=== PATIENT | female | born 1955 | race Caucasian/White ===

== ENCOUNTER 2017-02-06 16:59 | Emergency (ER) | payer OTHER ==
[~2017-02-06] VITALS: Ht 160 cm; Wt 94.3 kg
--- NOTE | 2017-02-06 17:12 | NUR ---
PT TO ER BED 09. PRESENTS W/ L SIDE FACIAL SWELLING AND TOOTH ACHE X 5 DAYS. PLACED ON MONITOR. STABLE VITALS. AWAITING MD [place].
--- NOTE | 2017-02-06 17:29 | NUR ---
IDANIA GONZALES AT BEDSIDE FOR EVAL.
[2017-02-06] MEDS ORDERED: ONDANSETRON HCL/PF 4 MG/2 ML VIAL IVP ONE (17:30)
[2017-02-06] MEDS ORDERED: IV NS 0.9% 1,000 ML BAG IV ONE (17:30)
[2017-02-06] MEDS ORDERED: HYDROMORPHONE INJ 2 MG/ML DISP.SYRIN IV ONE (17:30)
[2017-02-06] MEDS ORDERED: KETOROLAC TROMETHAMINE INJ 30 MG/ML VIAL IV ONE (17:30)
[2017-02-06] MEDS ORDERED: ACETAMINOPHEN ES 500 MG TABLET PO ONE (17:30)
--- NOTE | 2017-02-06 17:40 | NUR ---
IV LINE STARTED. BLOOD DRAWN AND SENT TO LAB.
[2017-02-06] MEDS ORDERED: ONDANSETRON HCL/PF 4 MG/2 ML VIAL ONE (17:43)
[2017-02-06] MEDS ORDERED: KETOROLAC TROMETHAMINE 15 MG/ML VIAL ONE (17:43)
[2017-02-06] MEDS ORDERED: ACETAMINOPHEN ES 500 MG TABLET ONE (17:43)
[2017-02-06] MEDS ORDERED: HYDROMORPHONE 1 MG/1 ML DISP.SYRIN ONE (17:43)
[2017-02-06] MEDS ORDERED: IV SET PRIMARY 1 EA INFUS.SET MC ONE (17:43)
[2017-02-06] MEDS ORDERED: IV NS 0.9% 1,000 ML ONE (17:43)
[2017-02-06 17:47] LABS: BASOPHILS # (AUTO) 0.2 /CMM (0.0-0.2); BASOPHILS % (AUTO) 1.4 % (0.0-2.0); EOSINOPHILS # (AUTO) 0.3 /CMM (0.0-0.7); EOSINOPHILS % (AUTO) 1.9 % (0.0-6.0); HEMATOCRIT 43 % (33-45); HEMOGLOBIN 14.4 g/dL (11.5-14.8); LYMPHOCYTES # (AUTO) 1.5 /CMM (0.8-4.8); LYMPHOCYTES % (AUTO) 10.7 % (20.0-44.0); MEAN CORPUSCULAR HEMOGLOBIN 30 PG (26.0-33.0); MEAN CORPUSCULAR HGB CONC 34 g/dl (31.0-36.0); MEAN CORPUSCULAR VOLUME 88 fL (82-100); MONOCYTES # (AUTO) 0.7 /CMM (0.1-1.30); MONOCYTES % (AUTO) 4.9 % (2.0-12.0); NEUTROPHILS # (AUTO) 11.5 /CMM (1.8-8.9); NEUTROPHILS % (AUTO) 81.1 % (43.0-81.0); PLATELET COUNT (AUTO) 252 /CMM (150-450); RDW COEFFICIENT OF VARIATION 12.3 (11.5-15.0); RED BLOOD CELL COUNT(AUTO) 4.86 MIL/uL (4.0-5.2); WHITE BLOOD COUNT (AUTO) 14.2 K/uL (4.3-11.0)
[2017-02-06] MEDS ORDERED: IOHEXOL-300 100 ML VIAL IV ONE (17:56)
[2017-02-06] MEDS ORDERED: IV NS 0.9% 250 ML IV ONE (17:56)
[2017-02-06] MEDS ORDERED: CT SWABBABLE VALVE TRANS SET 1 EA INFUS.SET MC ONE (17:56)
[2017-02-06 18:00] LABS: CALCIUM, SERUM 9.3 mg/dL (8.5-10.1); CREATININE 0.9 mg/dL (0.6-1.3); POTASSIUM 4.2 mmol/L (3.5-5.1)
[2017-02-06 18:07] LABS: ALBUMIN 3.7 g/dL (3.4-5.0); BILIRUBIN,DIRECT 0.2 mg/dL (0.0-0.2); TOTAL PROTEIN, SERUM 7.7 g/dL (6.4-8.2)
--- NOTE | 2017-02-06 18:16 | NUR ---
PT OT RADIOLOGY FOR CT NECK W/ CONTRAST VIA GURNEY.
[2017-02-06] MEDS ORDERED: PIPERACILLIN /TAZOBACTAM 3.375 G in IV D5W 50 ML IV STA (18:55)
--- NOTE | 2017-02-06 18:57 | NUR ---
PAGED ELAINE MELVIN
[2017-02-06] MEDS ORDERED: VANCOMYCIN 1 GM in IV D5W 250 ML IV ONE (19:00)
[2017-02-06] MEDS ORDERED: IV SET PRIMARY PUMP SET 1 EA INFUS.SET MC ONE (19:07)
--- NOTE | 2017-02-06 19:14 | NUR ---
BRANDAN BUTLER NP PATTERN GATER, TRANSFERRED CALL TO IDANIA (CHRISTIAN)
--- NOTE | 2017-02-06 19:28 | NUR ---
CALLED [facility], SPOKE WITH CHARGE AGUSTÍN DILLARD, PRESENTED PT, SHE STATED THEY DO NOT HAVE OMF OR ENT AVAILABLE AT THIS TIME
--- NOTE | 2017-02-06 19:43 | NUR ---
CALLED [facility], SPOKE WITH CAT, PRESENTED PT, FAXED CT RESULT TO [phone]
--- NOTE | 2017-02-06 19:46 | NUR ---
SISTER SHANEKA LEFT CONTACT # [phone]
--- NOTE | 2017-02-06 20:18 | NUR ---
CALLED [facility], PER SENIOR CORPORATE ACCOUNTANT ER IS SATURATED AND THEY ARE NOT ACCEPTING TRANSFERS AT THIS TIME.
--- NOTE | 2017-02-06 20:38 | NUR ---
RECEIVED CALL BACK FROM CAT AT [facility], PT IS ACCEPTED TO [facility] ER BY , NO NEED TO GIVE REPORT. [facility] NUMBER #[phone]
--- NOTE | 2017-02-06 20:40 | NUR ---
CALLED [facility] FOR TRANSPORT TO [facility] ER, ETA [phone]
[2017-02-06 21:51] VITALS: BP 153/83
--- NOTE | 2017-02-06 22:19 | NUR ---
PT TRANSFERED TO [facility] IN STABLE CONDITION.
== END 2017-02-06 22:21 | disposition short-term general hospital (02) ==
LOC: ER 17:04
DX: L03.211 Cellulitis of face (principal); E03.9 Hypothyroidism, unspecified; E11.9 Type 2 diabetes mellitus without complications; I10 Essential (primary) hypertension; Z88.5 Allergy status to narcotic agent
CPT/HCPCS: 36415; 70491-TC; 80048-TC; 80076-TC; 85025-TC; 86140-TC; 87040-TC; A4606; J1170; J1885; J2405; J2543; J3370; J7030; J7050; J7060; Q9967; Z7610